=== PATIENT | male | born 1945 | race Caucasian/White ===

== ENCOUNTER 2018-04-08 03:12 | Inpatient (IN) | payer MEDICARE, BC ==
[2018-04-08] VITALS (30 sets, daily range): BP systolic 72–178; BP diastolic 35–88; BMI 25.8
[~2018-04-08] VITALS: Ht 180.3 cm; Wt 84.5 kg
[2018-04-08] MEDS ORDERED: TOPROL XL100 MG PO (04:14)
[2018-04-08] MEDS ORDERED: LIPITOR10 MG PO (04:15)
[2018-04-08] MEDS ORDERED: ASPIRIN EC81 M1 PO (04:15)
[2018-04-08] MEDS ORDERED: MULTIPLE VITAMI1 TA1 PO (04:15)
[2018-04-08] MEDS ORDERED: ACETAMINOPHEN500 M1 PO ×2 (04:16→04:17)
[2018-04-08] MEDS ORDERED: HYDROCHLOROTH12.5 M1 PO (04:31)
[2018-04-08 06:08] LABS: BASOPHILS 0.2 % (0-2); EOSINOPHILS 0.1 % (0-7); HEMATOCRIT 43.7 % (42.0-54.0); HEMOGLOBIN 15.1 g/dL (13.5-17.5); IMMATURE GRANULOCYTES 0.2 % (0-5); LYMPHOCYTES 7.5 % (15-50); MCH 31.5 pg (26.0-34.0); MCHC 34.6 g/dL (31.0-37.0); MEAN PLATELET VOLUME 9.9 fL (7.4-10.4); PLATELET COUNT 191 10x3/uL (130-400); WBC 11.9 10x3/uL (4.8-10.8)
[2018-04-08 06:35] LABS: ALBUMIN 3.7 g/dL (3.4-5.0); ALKALINE PHOSPHATASE 70 U/L (46-116); ALT (SGPT) 32 U/L (10-68); BILIRUBIN - TOTAL 0.48 mg/dL (0.2-1.3); CALC OSMOLALITY 286 mosm/kg (275-300); CALCIUM 9.2 mg/dL (8.5-10.1); CARBON DIOXIDE 28.9 mmol/L (21.0-32.0); CHLORIDE - SERUM 104 mmol/L (98-107); CREATININE - SERUM 0.9 mg/dL (0.6-1.3); GLUCOSE 124 mg/dL (74-106); POTASSIUM - SERUM 3.8 mmol/L (3.5-5.1); PROTEIN - SERUM 7.6 g/dL (6.4-8.2); SODIUM 142 mmol/L (136-145); UREA NITROGEN 22 mg/dL (7-18); eGFR NON AFRICAN AMERICAN 89 mL/min (90-120)
[2018-04-08] MEDS ORDERED: ADCIRCA20 MG PO (07:28)
[2018-04-09] VITALS (13 sets, daily range): BP systolic 96–155; BP diastolic 48–85; BMI 25.9
[2018-04-09 04:49] LABS: CALCIUM 8.2 mg/dL (8.5-10.1); CARBON DIOXIDE 30.8 mmol/L (21.0-32.0); CHLORIDE - SERUM 105 mmol/L (98-107); CREATININE - SERUM 0.8 mg/dL (0.6-1.3); GLUCOSE 136 mg/dL (74-106); SODIUM 142 mmol/L (136-145); eGFR NON AFRICAN AMERICAN > 90 mL/min (90-120)
[2018-04-09 04:52] LABS: CALC OSMOLALITY 284 mosm/kg (275-300); POTASSIUM - SERUM 3.1 mmol/L (3.5-5.1); UREA NITROGEN 13 mg/dL (7-18)
[2018-04-09 04:55] LABS: BASOPHILS 0.3 % (0-2); EOSINOPHILS 0.9 % (0-7); HEMATOCRIT 38.5 % (42.0-54.0); HEMOGLOBIN 13.3 g/dL (13.5-17.5); IMMATURE GRANULOCYTES 0.1 % (0-5); LYMPHOCYTES 14.2 % (15-50); MCH 31.4 pg (26.0-34.0); MCHC 34.5 g/dL (31.0-37.0); MCV 90.8 fL (80.0-100.0); MEAN PLATELET VOLUME 10.4 fL (7.4-10.4); MONOCYTES 7.4 % (2-11); NEUTROPHILS 77.1 % (40-80); PLATELET COUNT 189 10x3/uL (130-400); RBC 4.24 10x6/uL (4.20-6.10); RDW 14.4 % (11.5-14.5)
[2018-04-09 04:56] LABS: WBC 7.7 10x3/uL (4.8-10.8)
[2018-04-09] MEDS ORDERED: CARAFATE1 G/10 ML PO (17:13)
[2018-04-09] MEDS ORDERED: PROTONIX40 MG PO (17:13)
[2018-04-10 08:20] VITALS: Ht 180.3 cm; Wt 84.5 kg
== END 2018-04-09 19:19 | disposition home or self-care (01) | DRG 393 ==
LOC: D.CVICU 03:12 → D.MS 03:12 → D.CVICU 06:55 → D.MS 04-09 15:41
PROVIDERS: Internal Medicine Gastroenterology; Internal Medicine Nephrology
PROC: 0DC38ZZ Extirpation of Matter from Lower Esophagus, Via Natural or Artificial Opening Endoscopic (ICD-10-PCS; principal; 2018-04-08 09:30)
DX: T18.128A Food in esophagus causing other injury, initial encounter (principal); K22.11 Ulcer of esophagus with bleeding; D62 Acute posthemorrhagic anemia; K44.9 Diaphragmatic hernia without obstruction or gangrene; I10 Essential (primary) hypertension; E78.5 Hyperlipidemia, unspecified; E87.6 Hypokalemia; D72.829 Elevated white blood cell count, unspecified